=== PATIENT | female | born 1975 | race Caucasian/White ===

== ENCOUNTER 2018-01-19 21:34 | Emergency (ER) | payer BC ==
--- NOTE | 2018-01-19 22:05 | EDM.PDOC ---
ED HPI GENERAL MEDICAL PROBLEM - General Chief Complaint: General Stated Complaint: POSSIBLE INFECTION Time Seen by Provider: 01/19/18 22:03 Source of Information: Reports: Patient - History of Present Illness INITIAL COMMENTS - FREE TEXT/NARRATIVE: HISTORY AND PHYSICAL: History of present illness: [Patient presents with her son for medical screening for C. difficile infection as she has a neighbor in her apartment building that his core and 2 due to C. difficile she is unable to provide a stool she states she has had loose stools for 6 months and is followed by primary care at [facility] may likely of tested for this previously she is unable to provide a stool sample she states that she does not have liquid stool she has been on 3 courses of Flagyl for vaginosis have discs discussed that it is unlikely that she has C. difficile she is as she cannot produce stool nor does she have watery stools no fever nausea vomiting chills sweats no chest pain shortness breath headache dizziness palpitation, no pain or urine symptoms no blood per rectum. He did offer to test for the C. difficile if she could produce a stool sample would qualify to test for C. difficile Review of systems: As per history of present illness and below otherwise all systems reviewed and negative. Past medical history: As per history of present illness and as reviewed below otherwise noncontributory. Surgical history: As per history of present illness and as reviewed below otherwise noncontributory. Social history: No reported history of drug or alcohol abuse. Family history: As per history of present illness and as reviewed below otherwise noncontributory. Physical exam: HEENT: Atraumatic, normocephalic, pupils reactive, negative for conjunctival pallor or scleral icterus, mucous membranes moist, throat clear, neck supple, nontender, trachea midline. Lungs: Clear to auscultation, breath sounds equal bilaterally, chest nontender. Heart: S1S2, regular, negative for clicks, rubs, or JVD. Abdomen: Soft, nondistended, nontender. Negative for masses or hepatosplenomegaly. Negative for costovertebral tenderness. Pelvis: Stable nontender. Genitourinary: Deferred. Rectal: Deferred. Extremities: Atraumatic, negative for cords or calf pain. Neurovascular unremarkable. Neuro: Awake, alert, oriented. Cranial nerves II through XII unremarkable. Cerebellum unremarkable. Motor and sensory unremarkable throughout. Exam nonfocal. Diagnostics: [None ] Therapeutics: [Lai reassured Follow-up with primary care ] Impression: [ medical screening exam ] Definitive disposition and diagnosis as appropriate pending reevaluation and review of above. - Related Data Allergies Allergy/AdvReac Type Severity Reaction Status Date / Time No Known Allergies Allergy Verified 04/21/16 16:47 Home Meds: Home Meds . [No Known Home Meds] 04/21/16 [History] Past Medical History - Infectious Disease History Infectious Disease History: Reports: Chicken Pox - Past Surgical History Female Surgical History: Reports: Section Social & Family History - Family History Family Medical History: Noncontributory ED ROS GENERAL - Review of Systems Review Of Systems: ROS reveals no pertinent complaints other than HPI. ED EXAM, GENERAL - Physical Exam Exam: See Below Departure - Departure Time of Disposition: 22:05 Disposition: Home, Self-Care 01 Condition: Good Clinical Impression: Encounter for medical screening examination - Discharge Information Referrals: PCP,None [Primary Care Provider] - Additional Instructions: The following information is given to patients seen in the emergency department who are being discharged to home. This information is to outline your options for follow-up care. We provide all patients seen in our emergency department with a follow-up referral. The need for follow-up, as well as the timing and circumstances, are variable depending upon the specifics of your emergency department visit. If you don't have a primary care physician on staff, we will provide you with a referral. We always advise you to contact your personal physician following an emergency department visit to inform them of the circumstance of the visit and for follow-up with them and/or the need for any referrals to a consulting specialist. The emergency department will also refer you to a specialist when appropriate. This referral assures that you have the opportunity for follow-up care with a specialist. All of these measure are taken in an effort to provide you with optimal care, which includes your follow-up. Under all circumstances we always encourage you to contact your private physician who remains a resource for coordinating your care. When calling for follow-up care, please make the office aware that this follow-up is from your recent emergency room visit. If for any reason you are refused follow-up, please contact the [facility] emergency department at and asked to speak to the emergency department charge nurse.
[2018-01-19 22:06] VITALS: BP 160/83
== END 2018-01-19 22:31 | disposition home or self-care (01) ==
LOC: MW.ED 21:34
DX: Z13.818 Encounter for screening for other digestive system disorders (principal)
CPT/HCPCS: 99282

== ENCOUNTER 2018-03-08 11:25 | Emergency (ER) | payer BC ==
--- NOTE | 2018-03-08 11:39 | EDM.PDOC ---
ED HPI GENERAL MEDICAL PROBLEM - General Chief Complaint: General Stated Complaint: HEADACHE Time Seen by Provider: 03/08/18 11:28 Source of Information: Reports: Patient History Limitations: Reports: No Limitations - History of Present Illness INITIAL COMMENTS - FREE TEXT/NARRATIVE: HISTORY AND PHYSICAL: History of present illness: [Terra is a 42-year-old female here for concerns of mold exposure. She reports she has been dealing with symptoms of mold exposure for the last month. She has seen multiple other providers for her symptoms and states she is "sick of it" and wants to get it taken care of. She has had a chest and abdominal CT and reports she has inflammation in her lungs. She denies any chest pain/pressure, SOB, AVILA, palpitations, abdominal pain, diarrhea, hematochezia, melena today. She did vomit 3 times yesterday. No hematemesis. She reports that today she has a headache and light is bothering her. She is having a lot of anxiety secondary to these symptoms and is requesting something for her anxiety. She would also like any anti-fungal medication for her symptoms. She is currently staying in a hotel. She reports she has an appointment with a steel analyst and pain medicine physician in [place] in the next few months. ] Review of systems: As per history of present illness and below otherwise all systems reviewed and negative. Past medical history: As per history of present illness and as reviewed below otherwise noncontributory. Surgical history: As per history of present illness and as reviewed below otherwise noncontributory. Social history: No reported history of drug or alcohol abuse. Family history: As per history of present illness and as reviewed below otherwise noncontributory. Physical exam: HEENT: Atraumatic, normocephalic, pupils reactive, negative for conjunctival pallor or scleral icterus, mucous membranes moist, throat clear, neck supple, nontender, trachea midline. Lungs: Clear to auscultation, breath sounds equal bilaterally, chest nontender. Heart: S1S2, regular, negative for clicks, rubs, or JVD. Abdomen: Soft, nondistended, nontender. Negative for masses or hepatosplenomegaly. Negative for costovertebral tenderness. Pelvis: Stable nontender. Genitourinary: Deferred. Rectal: Deferred. Extremities: Atraumatic, negative for cords or calf pain. Neurovascular unremarkable. Neuro: Awake, alert, oriented. Cranial nerves II through XII unremarkable. Cerebellum unremarkable. Motor and sensory unremarkable throughout. Exam nonfocal. Notes: Diagnostics: [CT Head w/o contrast] Therapeutics: Impression: Plan: Patient left AMA before going down for CT scan. Definitive disposition and diagnosis as appropriate pending reevaluation and review of above. 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 ED EXAM, GENERAL - Physical Exam Exam: See Below (see dictation) Course - Vital Signs Last Recorded V/S: Last Vital Signs Temp 36.2 C 03/08/18 11:36 Pulse 87 03/08/18 11:36 Resp 18 03/08/18 11:36 BP 139/82 03/08/18 11:36 Pulse Ox 96 03/08/18 11:36 - Orders/Labs/Meds Orders: Active Orders 24 hr Category Date Time Status Head wo Cont [CT] Stat Exams 03/08/18 11:57 Ordered HCG QUALITATIVE,URINE [URCHEM] Stat Lab 03/08/18 12:40 Ordered Labs: Laboratory Tests 03/08/18 Range/Units 12:40 Urine HCG, Qual NEGATIVE (NEGATIVE) Meds: Medications Discontinued Medications Generic Name Dose Route Start Last Admin Trade Name Freq PRN Reason Stop Dose Admin Ketorolac Tromethamine 60 mg 03/08/18 12:08 03/08/18 12:15 Toradol IM 03/08/18 12:09 Not Given ONETIME ONE Departure - Departure Time of Disposition: 13:33 Disposition: Against Medical Advice 07 Clinical Impression: Headache - Discharge Information Referrals: PCP,None [Primary Care Provider] - Forms: ED Department Discharge - My Orders Last 24 Hours: My Active Orders 03/08/18 11:57 Head wo Cont [CT] Stat 03/08/18 12:40 HCG QUALITATIVE,URINE [URCHEM] Stat - Assessment/Plan Last 24 Hours: My Active Orders 03/08/18 11:57 Head wo Cont [CT] Stat 03/08/18 12:40 HCG QUALITATIVE,URINE [URCHEM] Stat
--- NOTE | 2018-03-08 11:44 | EDM.PDOC ---
ED HPI GENERAL MEDICAL PROBLEM - General Chief Complaint: General Stated Complaint: HEADACHE Time Seen by Provider: 03/08/18 11:28 - Related Data Allergies Allergy/AdvReac Type Severity Reaction Status Date / Time No Known Allergies Allergy Verified 03/08/18 11:34 Home Meds: Home Meds . [No Known Home Meds] 04/21/16 [History] Past Medical History - Past Health History Medical/Surgical History: Denies Medical/Surgical History [employer] History: Reports: - Infectious Disease History Infectious Disease History: Reports: Chicken Pox - Past Surgical History Female Surgical History: Reports: Section Social & Family History - Family History Family Medical History: Noncontributory - Caffeine Use Caffeine Use: Reports: Coffee Departure - Discharge Information Referrals: PCP,None [Primary Care Provider] -
[2018-03-08] MEDS ORDERED: Ketorolac 60 MG/2 ML SDV IM ONE (12:08)
[2018-03-08 12:19] VITALS: BP 139/82
== END 2018-03-08 13:00 | disposition left against medical advice (07) ==
LOC: MW.ED 11:25
DX: R51 Headache (principal); Z53.20 Procedure and treatment not carried out because of patient's decision for unspecified reasons
CPT/HCPCS: 81025; 99282; 99284